=== PATIENT | male | born 1995 | race Caucasian/White ===

== ENCOUNTER 2020-06-28 06:45 | Day surgery (SDC) | payer OTHER, SELFPAY ==
[2020-06-28] VITALS (8 sets, daily range): BP systolic 110–128; BP diastolic 64–88; PULSE 59–91; RESP 16; TEMP 36.9–37.2; O2SAT 97–100; BMI 30.3
[2020-06-28] MEDS: Lactated Ringers 1,000 ML 100 ML IV ×2 (07:02→09:30)
[2020-06-28] MEDS: Cefazolin 2 GM in 0.9% Normal Saline 100 ML IV (08:58)
[2020-06-28] MEDS: Bupiv/Epi 0.5% Mpf 30 ML Vial (09:27)
[2020-06-28] MEDS: Epinephrine (1 mg/ml) 1 MG/ML VIAL (09:27)
--- NOTE | 2020-06-28 14:03 | OP.PCM_ITS ---
Report of Operation Date of Procedure: 06/28/20 Pre-Operative Diagnosis: Medial and lateral meniscal tears and recurrent ACL graft tear right knee Post-Operative Diagnosis: same Surgery/Procedure Performed:: Arthroscopically assisted revision ACL reconstruction and partial medial and lateral meniscectomies deck specialist: Carlos Eduardo Spencer Type of Anesthesia:: General/Regional Anesthesiologist: Andres Mendoza - Admit VTE Documentation VTE Present on Admission: No VTE Mechan Device Prophylaxis: SCD's, Thigh High MIKY Hose VTE Pharm Prophylaxis ordered?: Yes
== END 2020-06-28 13:48 | disposition home or self-care (01) ==
LOC: SDC 06:46 → AC 06:48
PROVIDERS: Anesthesiology; PCP Family Medicine; Referring Provider Orthopaedic Surgery; Visit Provider Orthopaedic Surgery
PROC: (CPT 29888; principal; 2020-06-28 08:40)
DX: S83.231A Complex tear of medial meniscus, current injury, right knee, initial encounter (principal); S83.271A Complex tear of lateral meniscus, current injury, right knee, initial encounter; S83.511A Sprain of anterior cruciate ligament of right knee, initial encounter; X58.XXXA Exposure to other specified factors, initial encounter; Y93.67 Activity, basketball; E66.3 Overweight; Z68.29 Body mass index [BMI] 29.0-29.9, adult; Z20.828 Contact with and (suspected) exposure to other viral communicable diseases
CPT/HCPCS: 01400; 29880; 29888; 64447; 87635; 94799; J7120; J2405; U0003